=== PATIENT | male | born 1970 | race Two or more races ===

== ENCOUNTER 2017-04-27 18:36 | Emergency (ER) | payer MEDICAID ==
[~2017-04-27] VITALS: Ht 180.3 cm; Wt 90.7 kg
--- NOTE | 2017-04-27 18:43 | Emergency Room Report ---
History of Present Illness General Chief Complaint: Chest Pain Source: Patient, EMS Present Illness HPI 47YOM with 2 hours Substernal nonradiating chest pain. Patient states quality is a pressure, like someone squeezing his chest. Was given nitroglycerin spray and aspirin by EMS. States he hasn't taken his aspirin, Plavix or blood pressure medication for last 2 days because he switch between recuperative homes for mental illness. Endorses 3 stents in the past all at outside hospitals, outside of the state including [facility] in [place]. endorses history of high blood pressure and high cholesterol. Allergies: Coded Allergies: CEPHALEXIN (Verified Allergy, Unknown, 04/27/17) PENICILLINS (Verified Allergy, Unknown, 04/27/17) Patient History Past Medical History: DM, HTN, CAD, psych hx Past Surgical History: none Pertinent Family History: none Social History: Denies: smoking, alcohol use, drug use Immunizations: UTD Reviewed Nursing Documentation: PMH: Agreed, PSxH: Agreed Nursing Documentation-PMH Past Medical History: No History, Except For Hx Cardiac Problems: Yes - 2 STENTS Hx Hypertension: Yes Hx Asthma: Yes Hx Diabetes: No - ESRF Review of Systems All Other Systems: negative except mentioned in HPI Physical Exam Vital Signs Date Time Temp Pulse Resp B/P (MAP) Pulse Ox O2 Delivery O2 Flow Rate FiO2 04/27/17 18:31 82 20 128/86 99 Room Air Sp02 EP Interpretation: reviewed, normal General Appearance: normal inspection, well appearing, no apparent distress, alert, GCS 15, non-toxic Head: normocephalic, atraumatic Eyes: bilateral eye PERRL, bilateral eye EOMI ENT: normal ENT inspection, hearing grossly normal, normal pharynx, no angioedema, normal voice, TMs + canals normal, uvula midline, moist mucus membranes Neck: normal inspection, full range of motion, supple, thyroid normal, no meningismus, no bony tend Respiratory: normal inspection, lungs clear, normal breath sounds, no rhonchi, no respiratory distress, no retraction, no accessory muscle use, no wheezing, speaking full sentences Cardiovascular #1: regular rate, rhythm, no edema, no JVD, normal capillary refill Gastrointestinal: normal inspection, normal bowel sounds, non tender, soft, no mass, no peritonitis, non-distended, no guarding, no hernia, no pulsatile mass Genitourinary: no CVA tenderness Musculoskeletal: normal inspection, back normal, normal range of motion, no calf tenderness, pelvis stable, Galindo's Sign negative Neurologic: normal inspection, alert, oriented x3, responsive, food prep worker III-XII nml as tested, motor strength/tone normal, cerebellar normal, normal gait, speech normal Psychiatric: normal inspection, judgement/insight normal, mood/affect normal, no suicidal/homicidal ideation, no delusions Skin: normal inspection, normal color, no rash Lymphatic: normal inspection, no adenopathy Medical Decision Making Diagnostic Impression: Primary Impression: Chest pain Qualified Codes: R07.9 - Chest pain, unspecified ER Course ECG: Electronic read of inferior and septal infarct is incorrect, patient has deep S waves, not Q waves in. No ischemia or arrhythmia. Troponin is 0.000 No other lab abnormalities CXR shows Cardiomegaly, but no other acute process. Questionable history of CAD, given no ischemic changes on ECG and 0.00 troponin Chest pain resolved after sublingual nitroglycerin Possible Munchaussen? Got 28 and 24 tablets of ?norco Nov and Feb 2017, nothing currently on Cures advise PMD followup for refill of medications Im Uncomfortable re-prescibingPlavix, Imdur and another potent hypertensive medications given ?questionable history of CAD ER course: Patient has remained stable during ED stay. Disposition: Patient is to be discharged to home. Patient is instructed to follow up with their primary care doctor within 5 days. Strict return precautions discussed with patient such as fever, chills, worsening/severe pain, nausea, vomiting, which may indicate severe illness. Patient verbalizes understanding and agrees with plan. Please note that this Emergency Department Report was dictated using Closelypl[employer] drier operator technology software, occasionally this can lead to erroneous entry secondary to interpretation by the dictation equipment EKG Diagnostic Results Rate: normal Rhythm: NSR ST Segments: no acute changes ASA given to the pt in ED: No Rhythm Strip Diag. Results EP Interpretation: yes Rate: 65 Rhythm: NSR, no PVC's, no ectopy Chest X-Ray Diagnostic Results Chest X-Ray Diagnostic Results : Chest X-Ray Ordered: Yes # of Views/Limited/Complete: 1 View Indication: Chest Pain EP Interpretation: Yes Interpretation: no consolidation, no effusion, no pneumothorax, other - + cardiomegaly Impression: No acute disease Electronically Signed by: Dr Luis Enrique Diego MD Last Vital Signs Date Time Temp Pulse Resp B/P (MAP) Pulse Ox O2 Delivery O2 Flow Rate FiO2 04/27/17 18:31 82 20 128/86 99 Room Air Status: improved Disposition: HOME, SELF-CARE LUIS ENRIQUE DIEGO M.D. Apr 27, 2017 18:43
[2017-04-27] MEDS ORDERED: Nitroglycerin Subl 0.4mg tab SL PRN (18:45)
[2017-04-27 19:07] VITALS: BP 125/85
[2017-04-27 19:07] LABS: BASOPHILS % (AUTO) 0.7 % (0.0-2.0); EOSINOPHILS % (AUTO) 2.7 % (0.0-3.0); HEMATOCRIT 40.2 % (42.0-52.0); HEMOGLOBIN 12.9 G/DL (14.2-18.0); LYMPHOCYTES % (AUTO) 30.1 % (20.0-45.0); MEAN CORPUSCULAR VOLUME 83 FL (80-99); MONOCYTES % (AUTO) 7.8 % (1.0-10.0); NEUTROPHILS % (AUTO) 58.7 % (45.0-75.0); PLATELET COUNT 206 K/UL (150-450); RED BLOOD COUNT 4.81 M/UL (4.70-6.10); RED CELL DISTRIBUTION WIDTH 13.3 % (11.6-14.8); WHITE BLOOD COUNT 5.7 K/UL (4.8-10.8)
[2017-04-27 19:20] LABS: ANION GAP 9 mmol/L (5-15); BLOOD UREA NITROGEN 22 mg/dL (7-18); CALCIUM 9.6 MG/DL (8.5-10.1); CARBON DIOXIDE 29 MMOL/L (21-32); CHLORIDE 106 MMOL/L (98-107); CREATININE 1.4 MG/DL (0.55-1.30); SODIUM 144 MMOL/L (136-145)
[2017-04-27 19:35] LABS: ALANINE AMINOTRANSFERASE 18 U/L (12-78); ALBUMIN 3.9 G/DL (3.4-5.0); ALKALINE PHOSPHATASE 83 U/L (46-116); ASPARTATE AMINO TRANSFERASE 13 U/L (15-37); BILIRUBIN,TOTAL 0.3 MG/DL (0.2-1.0); CKMB 2.5 NG/ML (0.0-3.6); CREATINE KINASE 176 U/L (26-308)
[2017-04-27 20:08] VITALS: BP 125/85
--- NOTE | 2017-04-28 09:06 | Diagnostic Imaging Report ---
Indication: Reason For Exam: PAIN Technique: One view of the chest Comparison: none Findings: Lungs and pleural spaces are clear. Heart size is normal Impression: No acute process
--- NOTE | 2017-05-08 16:58 | Cardiology Report ---
APPROVED REPORT EKG Measurement Heart [id number] Normal sinus rhythm Inferior infarct, age undetermined Abnormal ECG
== END 2017-04-27 20:08 | disposition home or self-care (01) ==
LOC: EDBD 18:36 → EMR 20:08
DX: R07.89 Other chest pain (principal); I10 Essential (primary) hypertension; J45.909 Unspecified asthma, uncomplicated; I25.10 Atherosclerotic heart disease of native coronary artery without angina pectoris; E11.9 Type 2 diabetes mellitus without complications; Z88.0 Allergy status to penicillin; Z95.5 Presence of coronary angioplasty implant and graft
CPT/HCPCS: 36415; 71045; 80053; 82550; 82553; 84484; 85025; 93005; 99284

== ENCOUNTER 2018-09-18 16:21 | Emergency (ER) | payer MEDICAID ==
[~2018-09-18] VITALS: Ht 170.2 cm; Wt 84.8 kg
[2018-09-18] MEDS ORDERED: AZOPT10 ML OP (16:32)
--- NOTE | 2018-09-18 16:37 | NUR ---
ED Nurse Note: PT WALKED IN TO ER TODAY FROM HOME. AOX4. PT HERE FOR MEDICATION REFILL. PT STATES HE TAKES AZOPT EYE DROPS FOR GLAUCOMA TID OU. PT STATES [employer] IS NOT COVERING HIS MEDICATION. PT STATES HE JUST MOVED TO [place] AND DOES NOT HAVE AN OPHTHALMOLGIST BUT NEEDS TO TAKE HIS EYEDROPS. PT C/O LEFT SIDED EYE PAIN, 10/10. 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
--- NOTE | 2018-09-18 16:37 | NUR ---
Note shayla in EDM - 09/18/18 at 1642 by FATIMAH ED Nurse Note: PT WALKED IN TO TODAY FROM HOME. AOX4. PT HERE FOR MEDICATION REFILL. PT STATES HE TAKES AZOPT EYE DROPS FOR GLAUCOMA TID OU. PT STATES [facility] IS NOT COVERING HIS MEDICATION. PT STATES HE JUST MOVED TO [place] AND DOES NOT HAVE AN OPHTHALMOLGIST BUT NEEDS TO TAKE HIS EYEDROPS.
[2018-09-18 16:39] VITALS: BP 118/82
[2018-09-18] MEDS ORDERED: CLOPIDOGREL75 MG ORAL (16:53)
[2018-09-18] MEDS ORDERED: CARVEDILOL3.125 MG ORAL (16:53)
[2018-09-18] MEDS ORDERED: LOSARTAN POTASS25 MG ORAL (16:53)
[2018-09-18] MEDS ORDERED: DEPAKOTE ER500 MG ORAL (16:53)
[2018-09-18] MEDS ORDERED: Tetracaine 0.5% Opth 4ml Soln ONE (17:07)
[2018-09-18] MEDS ORDERED: Tetracaine 0.5% Opth 4ml Soln LEFT EYE ONE (17:15)
--- NOTE | 2018-09-18 17:17 | Emergency Room Report ---
History of Present Illness General Chief Complaint: Eye Problems Source: Patient Present Illness HPI 48-year-old male with history of glaucoma, hypertension, hyperlipidemia, and hypothyroidism here complaining of increased pressure in left a specifically for glaucoma. Patient has been using his Azopt drop in the past however reports that his new [employer] insurance no longer covers it and has not been applying that a few days. Patient has an appointment with his primary care provider in 2 days. Patient also reports that he has history of seizures and has been taking all of his medication however has not been taking his blood pressure medication today. Rating the pain and pressure in the left eye and periorbital 10 out of 10 without radiation. 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 Denies any recent trauma to the orbital area, chest pain, palpitation, abdominal pain, nausea vomiting. Patient has not seen an natural resources instructor in over 3 months. Allergies: Coded Allergies: CEPHALEXIN (Verified Allergy, Unknown, 04/27/17) PENICILLINS (Verified Allergy, Unknown, 04/27/17) Patient History Past Medical History: see triage record Past Surgical History: unable to obtain Pertinent Family History: none Immunizations: UTD Reviewed Nursing Documentation: PMH: Agreed; PSxH: Agreed Nursing Documentation-PMH Hx Cardiac Problems: Yes - 2 STENTS glaucoma Hx Hypertension: Yes Hx Asthma: Yes Hx Diabetes: No - ESRF Review of Systems All Other Systems: negative except mentioned in HPI Physical Exam Vital Signs Date Time Temp Pulse Resp B/P (MAP) Pulse Ox O2 Delivery O2 Flow Rate FiO2 09/18/18 16:28 97.9 63 17 122/85 (97) 99 Room Air Sp02 EP Interpretation: reviewed, normal General Appearance: normal inspection, well appearing, no apparent distress, alert Head: normocephalic, atraumatic Eyes: left eye other - 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 ENT: normal ENT inspection, hearing grossly normal, normal pharynx, no angioedema Neck: normal inspection, full range of motion, supple, thyroid normal Respiratory: normal inspection, chest non-tender, lungs clear, no rhonchi, no wheezing Cardiovascular #1: normal inspection, normal peripheral pulses, regular rate, rhythm, no murmur Gastrointestinal: normal inspection, non tender, soft Rectal: deferred Neurologic: normal inspection, alert, oriented x3 Psychiatric: normal inspection, judgement/insight normal, memory normal Skin: normal inspection, normal color, no rash, warm/dry, palpation normal Lymphatic: normal inspection, no adenopathy Medical Decision Making PA Attestation All my diagnosis and treatment plans were reviewed ad discussed with my supervising physician Dr. Malone Diagnostic Impression: Primary Impression: Glaucoma ER Course 48-year-old male with history of glaucoma, hypertension, hyperlipidemia, and hypothyroidism here complaining of increased pressure in left a specifically for glaucoma. Patient has been using his Azopt drop in the past however reports that his new [employer] insurance no longer covers it and has not been applying that a few days. Patient has an appointment with his primary care provider in 2 days. Patient also reports that he has history of seizures and has been taking all of his medication however has not been taking his blood pressure medication today. Rating the pain and pressure in the left eye and periorbital 10 out of 10 without radiation. 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 Denies any recent trauma to the orbital area, chest pain, palpitation, abdominal pain, nausea vomiting. Patient has not seen an natural resources instructor in over 3 months. Ddx considered but are not limited to: Uncontrolled glaucoma ,bacterial conjunctivitis, allergic conjunctivitis, viral conjunctivitis, periorbital cellulitis, global trauma Vital signs: are WNL, pt. is afebrile H&PE are most consistent with: Uncontrolled glaucoma ORDERS: Dorzolamide eyedrops, eye pressure was measured at 86 left eye and 19 in the right ED INTERVENTIONS: Dorzolamide eyedrops DISCHARGE: At this time pt. is stable for d/c to home. Will provide printed patient care instructions, and any necessary prescriptions. Care plan and follow up instructions have been discussed with the patient prior to discharge. Follow-up with primary doctor for referral to natural resources instructor Last Vital Signs Date Time Temp Pulse Resp B/P (MAP) Pulse Ox O2 Delivery O2 Flow Rate FiO2 09/18/18 16:39 98.1 64 16 118/82 100 Room Air Disposition: HOME, SELF-CARE Condition: Stable Scripts Dorzolamide HCl/Pf (Dorzolamide 2% Eye Drop) 10 Ml Drops 1 DROP OP TID, #10 ML Prov: Yoshi Marquez 09/18/18 Patient Instructions: Glaucoma Surgery, Care After Additional Instructions: Follow-up with your natural resources instructor for better management of glaucoma have your primary doctor do a stat referral for ophthalmology Yoshi Marquez Sep 18, 2018 17:17
[2018-09-18] MEDS ORDERED: DORZOLAMIDE 2%10 ML OP (17:19)
--- NOTE | 2018-09-18 17:20 | NUR ---
ED Nurse Note: PT SITTING PEACEFULLY IN BED IN NAD. AOX4. PRESCRIPTION AND DISCHARGE PAPERWORK EXPLAINED TO PT. PT VERBALIZES UNDERSTANDING AND ALL QUESTIONS ANSWERED. PRESCRIPTION AND DISCHARGE PAPERWORK GIVEN TO PT AND ID WRISTBAND REMOVED. PT WALKED OUT OF ER WITH STEADY GAIT AND ALL BELONGINGS.
[2018-09-18 17:21] VITALS: BP 121/86
[2018-09-18] MEDS ORDERED: Dorzolamide 2% 10ml Btl LEFT EYE SCH (18:00)
== END 2018-09-18 17:21 | disposition home or self-care (01) ==
LOC: EMR 17:12
DX: H40.9 Unspecified glaucoma (principal); E78.5 Hyperlipidemia, unspecified; Z88.0 Allergy status to penicillin; Z88.8 Allergy status to other drugs, medicaments and biological substances; Z95.5 Presence of coronary angioplasty implant and graft; I12.0 Hypertensive chronic kidney disease with stage 5 chronic kidney disease or end stage renal disease; N18.6 End stage renal disease; E03.9 Hypothyroidism, unspecified
CPT/HCPCS: 99282